=== PATIENT | female | born 1965 | race American Indian/Alaskan Native ===

== ENCOUNTER 2017-01-02 00:48 | Emergency (ER) | payer SELFPAY ==
[2017-01-02] MEDS ORDERED: NORCO 7.5/325 PO ONE (05:16)
[2017-01-02] MEDS ORDERED: FLEXERIL PO ONE (05:16)
[2017-01-02] MEDS ORDERED: TORADOL IM ONE (05:16)
[2017-01-02 08:21] VITALS: BP 130/70
--- NOTE | 2017-01-02 10:58 | XRay Report ---
FINAL REPORT EXAM: XR FINGER(S) 2+V LT HISTORY: Status post fall, with pain and swelling index finger. TECHNIQUE: A single frontal radiograph of the left hand and two additional radiographs of the left 2nd digit were obtained. No prior studies are available for comparison. FINDINGS: There is no fracture or dislocation. There is minimal hypertrophic degenerative spurring at the 2nd, 3rd, and 4th DIP joints. No other discrete osseous abnormality is seen. There is mild soft tissue swelling along the 2nd digit. IMPRESSION: No fracture or dislocation. Mild soft tissue swelling along the 2nd digit.
--- NOTE | 2017-01-02 11:02 | XRay Report ---
FINAL REPORT EXAM: XR KNEE 3V RT HISTORY: Status post fall, with knee pain and swelling. TECHNIQUE: Three radiographs of right knee were obtained. No prior studies are available for comparison. FINDINGS: There is no fracture or dislocation. There is a moderate joint effusion. Minimal marginal spurring is seen in all three compartments. There is mild medial femoral-tibial joint space narrowing. No other discrete osseous abnormality is seen. IMPRESSION: No fracture or dislocation. Moderate joint effusion. MRI examination should be considered for further evaluation of underlying soft tissue injury.
--- NOTE | 2017-01-02 23:37 | Emergency Department Report ---
ED Fall HPI - General Chief Complaint: Fall Stated Complaint: FALL/L INDEX FINGER PAIN Source: patient Mode of arrival: Wheelchair Limitations: No Limitations - History of Present Illness Initial Comments: 51 year old female presents to ED with right knee pain and left finger pain after mechanical fall down stairs. patient states she tripped and fell and denies trauma to head/neck or LOC. patient is stable, neurologically intact and in no acute distress. patient states she is unable to ambulate due to pain in knee after fall today. MD Complaint: fall -: Sudden Fall From: down stairs (#) (5 stairs) When Fall Occurred: 4-6 hours [employer] Fall Witnessed: yes, by family Loss of Consciousness: none Prolonged Down Time?: no Symptoms Prior to Fall: none Location: other (right knee) Location - Extremities: Left: Hand, Right: Knee Severity: mild Quality: aching Context: tripped/slipped Associated Symptoms: unable to walk. denies: headache, neck pain, numbness, weakness, chest paint, shortness of breath, abdominal pain, hematuria, lightheaded, vertigo, confusion - Related Data Previous Rx's Medication Instructions Recorded Last Taken Type HYDROcodone/APAP 7.5-325 [Dulzura 1 each PO Q6HR PRN #20 tablet 12/31/14 Unknown Rx 7.5-325 mg TAB] Ibuprofen [Motrin 600 MG tab] 600 mg PO Q8H PRN #40 tablet 12/31/14 Unknown Rx Ketorolac [Toradol] 10 mg PO Q6H PRN #20 tablet 01/02/17 Unknown Rx methOCARBAMOL [Robaxin TAB] 500 mg PO BID #20 tab 01/02/17 Unknown Rx Allergies Allergy/AdvReac Type Severity Reaction Status Date / Time No Known Allergies Allergy Verified 01/02/17 01:02 ED Review of Systems ROS: Stated complaint: FALL/L INDEX FINGER PAIN Other details as noted in HPI Constitutional: denies: chills, fever Eyes: denies: eye pain, eye discharge, vision change ENT: denies: ear pain, throat pain Respiratory: denies: cough, shortness of breath, wheezing Cardiovascular: denies: chest pain, palpitations Endocrine: no symptoms reported Gastrointestinal: denies: abdominal pain, nausea, diarrhea Genitourinary: denies: urgency, dysuria, discharge Musculoskeletal: arthralgia (right knee pain and left 2nd finger pain). denies : back pain, joint swelling Skin: denies: rash, lesions Neurological: denies: headache, weakness, paresthesias Psychiatric: denies: anxiety, depression Hematological/Lymphatic: denies: easy bleeding, easy bruising ED Past Medical Hx - Past Medical History Previous Medical History?: Yes Hx Diabetes: Yes Hx Arthritis: Yes (osteo) Additional medical history: enlargedheart - Surgical History Past Surgical History?: Yes Additional Surgical History: lumpoma to back. Skin grafts to left hand. - Social History Smoking Status: Current Every Day Smoker Substance Use Type: None - Medications Home Medications: Home Medications Medication Instructions Recorded Confirmed Last Taken Type HYDROcodone/APAP 7.5-325 [Dulzura 1 each PO Q6HR PRN #20 tablet 12/31/14 Unknown Rx 7.5-325 mg TAB] Ibuprofen [Motrin 600 MG tab] 600 mg PO Q8H PRN #40 tablet 12/31/14 Unknown Rx Ketorolac [Toradol] 10 mg PO Q6H PRN #20 tablet 01/02/17 Unknown Rx methOCARBAMOL [Robaxin TAB] 500 mg PO BID #20 tab 01/02/17 Unknown Rx ED Physical Exam - General Limitations: No Limitations General appearance: alert, in no apparent distress - Head Head exam: Present: atraumatic, normocephalic - Eye Eye exam: Present: normal appearance - ENT ENT exam: Present: mucous membranes moist - Neck Neck exam: Present: normal inspection - Respiratory Respiratory exam: Present: normal lung sounds bilaterally. Absent: respiratory distress - Cardiovascular Cardiovascular Exam: Present: regular rate, normal rhythm. Absent: systolic murmur, diastolic murmur, rubs, gallop - GI/Abdominal GI/Abdominal exam: Present: soft, normal bowel sounds. Absent: distended, tenderness - Extremities Exam Extremities exam: Present: normal inspection, other (patient has limited ROM in left index finger due to pain. patient has no swelling present in left hand or wrist. no laceration or bruising present. ) - Expanded Lower Extremity Exam Right Hip exam: Present: normal inspection, full ROM. Absent: tenderness Upper Leg exam: Present: normal inspection, full ROM. Absent: tenderness Knee exam: Present: tenderness (mild right knee tenderness on exam, pain with bending/flexion/extension). Absent: swelling, abrasion, laceration, ecchymosis , deformity, dislocation, erythema, full knee extension Lower Leg exam: Present: normal inspection, full ROM. Absent: tenderness Ankle exam: Present: normal inspection, full ROM. Absent: tenderness Foot/Toe exam: Present: normal inspection, full ROM. Absent: tenderness Neuro vascular tendon exam: Present: no vascular compromise Gait: Positive: not tested/not observed, unable to bear weight - Back Exam Back exam: Present: normal inspection, full ROM. Absent: tenderness - Neurological Exam Neurological exam: Present: alert, oriented X3 - Psychiatric Psychiatric exam: Present: normal affect, normal mood - Skin Skin exam: Present: warm, dry, intact, normal color. Absent: rash ED Course Vital Signs 01/02/17 01/02/17 00:55 08:20 Temperature 98.6 F Pulse Rate 94 H 88 Respiratory 18 18 Rate Blood Pressure 132/76 Blood Pressure 130/70 [Right] O2 Sat by Pulse 99 99 Oximetry ED Medical Decision Making - Radiology Data Radiology results: report reviewed XR left finger No fracture or dislocation. XR right knee No fracture or dislocation. Moderate joint effusion. - Medical Decision Making 51 year old female presents to ED with right knee pain and left finger pain after mechanical fall. patient has no fracture or dislocation present on imaging studies and will be given PO NSAIDS and knee immobilizer, crutches for pain and assistance with walking. patient is stable, neurologically intact and in no acute distress. patient understands she needs to follow up with Ortho ( Dr. patino) for joint effusion and further evaluation of right knee. Critical care attestation.: If time is entered above; I have spent that time in minutes in the direct care of this critically ill patient, excluding procedure time. ED Disposition Clinical Impression: Fall (on) (from) other stairs and steps, initial encounter Disposition: DC-01 TO HOME OR SELFCARE Is pt being admited?: No Does the pt Need Aspirin: No Condition: Stable Instructions: Fall Prevention (ED) Prescriptions: Ketorolac [Toradol] 10 mg PO Q6H PRN #20 tablet PRN Reason: Pain methOCARBAMOL [Robaxin TAB] 500 mg PO BID #20 tab Referrals: [facility] [Outside] - 3-5 Days PRIMARY CARE, [Primary Care Provider] - 3-5 Days RADHA PATINO MD [Staff Physician] - 3-5 Days
== END 2017-01-02 08:19 | disposition home or self-care (01) ==
LOC: ED 00:48
DX: M79.645 Pain in left finger(s) (principal); M25.561 Pain in right knee; E11.9 Type 2 diabetes mellitus without complications; M19.90 Unspecified osteoarthritis, unspecified site; F17.200 Nicotine dependence, unspecified, uncomplicated; W10.8XXA Fall (on) (from) other stairs and steps, initial encounter; Y93.89 Activity, other specified; Y99.8 Other external cause status; Y92.89 Other specified places as the place of occurrence of the external cause
CPT/HCPCS: 29505; 73140; 73562; 96372; 99284; J1885